=== PATIENT | male | born 1990 | race Caucasian/White ===

== ENCOUNTER 2020-11-17 12:59 | Observation (INO) | payer BC, OTHER ==
[~2020-11-17] VITALS: Ht 177.8 cm; Wt 72.6 kg
[2020-11-17 13:59] LABS: RED BLOOD COUNT 5.48 M/UL (4.20-5.50)
[2020-11-17 14:20] LABS: BUN/CREATININE RATIO 13 (0-10)
[2020-11-18] MEDS ORDERED: HYDROCODON-ACE1 EAC4 PO (09:24)
--- NOTE | 2020-11-18 11:19 | NUR ---
INSTRUCTED PATIENT TAKE PAIN MEDS NEEDED ENTRY LEVEL ACCOUNTING CLERK AT [facility] YANCI ANDERSON. SHOWER NORMAL, ACTIVITIES TOLERATED PER DR. HARDY. KEEP LOG OF DRAIN OUTPUT TAKE TO MD OFFICE. VERBALIZED UNDESTANDING. KENNY MILLER R.N.
== END 2020-11-18 12:00 | disposition home or self-care (01) ==
LOC: ER1 12:59 → MED SURG 4 18:09 → CDU 18:09 → MED SURG 4 22:11
PROVIDERS: Physician Assistant; ADMIT Surgery
PROC: 0DTJ4ZZ Resection of Appendix, Percutaneous Endoscopic Approach (ICD-10-PCS; principal; 2020-11-17 20:37)
DX: K35.80 Unspecified acute appendicitis (principal); Z20.822 Contact with and (suspected) exposure to COVID-19
CPT/HCPCS: 80053; 81001; 83690; 85025; 96374; 96375; 99285; G0378; J0690; J1100; J2001; J2270; J2405; J2543; J2704; J2710; J3010; J7030; J7120; Q9967; U0002